=== PATIENT | male | born 1995 | race Caucasian/White ===

== ENCOUNTER 2017-07-04 17:46 | Emergency (ER) | payer BC ==
[~2017-07-04] VITALS: Ht 175.3 cm; Wt 64.4 kg
[2017-07-04 18:00] VITALS: BP 169/97; TEMP 99.8
[2017-07-04] MEDS ORDERED: PROAIR HFA0.09 MG/AC IH (18:03)
[2017-07-04 19:11] VITALS: PULSE 88
== END 2017-07-04 19:12 | disposition home or self-care (01) ==
LOC: COL.ER 17:46
DX: S01.81XA Laceration without foreign body of other part of head, initial encounter (principal); W51.XXXA Accidental striking against or bumped into by another person, initial encounter

== ENCOUNTER 2017-07-09 13:01 | Emergency (ER) | payer BC ==
[~2017-07-09 13:01] MED LIST: PROAIR HFA0.09 MG/AC IH
[2017-07-09 13:08] VITALS: BP 136/77; PULSE 57; TEMP 98
== END 2017-07-09 13:12 | disposition home or self-care (01) ==
LOC: COL.ER 13:01
DX: S01.81XD Laceration without foreign body of other part of head, subsequent encounter (principal); X58.XXXD Exposure to other specified factors, subsequent encounter